=== PATIENT | female | born 2005 | race Caucasian/White ===

== ENCOUNTER → 2023-03-10 13:57 | Outpatient (BNVA) | payer BC, MEDICAID, SELFPAY | PROVIDERS: Visit Provider Nurse Practitioner Family | DX: R10.12 Left upper quadrant pain (principal); X58.XXXA Exposure to other specified factors, initial encounter | CPT/HCPCS: 80053; 82150; 83690; 85025 ==

== ENCOUNTER 2023-04-13 19:19 | Inpatient (IN) | payer BC, MEDICAID, SELFPAY ==
[2023-04-13] VITALS (15 sets, daily range): BP systolic 134–195; BP diastolic 92–167; PULSE 87–142; RESP 16–29; TEMP 36.8–37.1; O2SAT 95–99; BMI 39.6
--- NOTE | 2023-04-13 19:40 | ED_ITS ---
HPI - SOB/Dyspnea General: Chief Complaint: Shortness of Breath/Dyspnea Stated Complaint: has rsv was sent from her doc for ekg Time Seen by Provider: 04/13/23 19:37 History of Present Illness: HPI Narrative: This 18-year-old female presents to the ER with headache, body aches, cough, shortness of breath and chills that started about 7 days ago. There is a ssociated (lightheadedness especially when she stands up) and stuffy nose. She was seen by her primary care provider on Sunday (2 days ago) and was given a prescription for levofloxacin and Tessalon Perles. Patient has not shown any improvement but has rather worsened. She is tachypneic and also tachycardic. Her primary care provider told her she has RSV though an RSV test was not done. Associated symptoms: Reports chest congestion and lightheadedness Review of Systems Const: Denies: chills, body aches or change in appetite Eyes: Denies: change in vision or eye discharge ENMT: Denies: throat pain, dental pain or nasal discharge Card: Reports: lightheadedness and dyspnea on exertion Resp: Reports: dyspnea, wheezing and chest congestion : Denies: dysuria Musc: Reports: other (Body aches, headache) Neuro: Reports: headache(s) and numbness in extremities Psych: Denies: depression Jose/Lymph: Denies: easy bruising All/Imm: Denies: urticaria, tongue swelling or facial swelling Physical Exam Const: COMMON NORMALS: patient oriented x3, no limitations and alert OTHER: Appears to be in distress HENMT: COMMON NORMALS: normocephalic HEAD & SCALP: normocephalic Eye: COMMON NORMALS: EOMs intact bilaterally Neck/C-Spine: COMMON NORMALS: full ROM and supple Chest: COMMONS NORMALS: normal inspection of the chest Resp: OTHER: Tachypnea, mild respiratory distress with use of accessory muscles to breathe. Diffuse bilateral expiratory wheeze, coarse breath sounds bilaterally. Cardio: COMMON NORMALS: regular rhythm and No murmurs present (Cardio) RATE: tachycardic RHYTHM: regular rhythm GI: COMMON NORMALS: Normal to inspection, nondistended, normoactive bowel sounds present and non-tender : COMMON NORMALS: Yes no CVA tenderness BLADDER/KIDNEY EXAM: Yes no CVA tenderness Back/Pelvis: COMMON NORMALS: no CVA tenderness and no thoracic nor lumbar tenderness Extremity: GENERAL: Yes normal exam except as noted Neuro: COMMON NORMALS: patient oriented x3 and no focal motor deficits SENSORIUM/ORIENTATION: Yes alert Psych: COMMON NORMALS: mental status grossly normal and cooperative Course Reevaluation(s): Reevaluation #1: Patient reevaluated. Tachycardia seems slightly better. Respiratory distress has slightly improved but is still there. Patient is tachypneic. She will be admitted for further evaluation and treatment. Patient and mom agree with the plan. Consultations: Consultation #1: Case discussed with Dr. Garcia who accepted patient for admission. Vital Signs: Vital signs: Vital Signs Temperature 98.2 F 04/13/23 19:27 Pulse Rate 129 H 04/13/23 20:36 Respiratory Rate 18 04/13/23 20:36 Blood Pressure 134/107 04/13/23 20:10 Pulse Oximetry 96 04/13/23 20:36 Oxygen Delivery Me thod Room Air 04/13/23 20:36 MDM - SOB/Dyspnea Medical Decision Making Medical decision making: Patient has a history of asthma and presents with a 7-day history of cough, shortness of breath, congestion and lightheadedness. She has diffuse bilateral wheezing with coarse breath sounds. Despite receiving breathing treatments here in addition to what she got at her primary care physician's office and treatments at home, patient continues to wheeze with mild respiratory distress. She will be admitted for further management. Case discussed with Dr. Garcia who accepted patient for admission. Lab Data 04/13/23 19:44 04/13/23 19:44 Labs/Radiology: Radiology Impressions Chest X-Ray 04/13/23 19:57 IMPRESSION: No acute findings. Laboratory Results WBC 14.38 10^3/uL (4.5-13.0) H 04/13/23 19:44 RBC 5.05 10^6/uL (3.85-5.65) 04/13/23 19:44 Hgb 15.60 g/dL (12.4-14.8) H 04/13/23 19:44 Hct 45.1 % (36-47) 04/13/23 19:44 MCV 89.3 fl (85-98) 04/13/23 19:44 MCH 30.9 pg (27-33) 04/13/23 19:44 MCHC 34.6 g/dL (30-55) 04/13/23 19:44 RDW 12.1 % (12.1-15.1) 04/13/23 19:44 Plt Count 412 10^3/cmm (157-399) H 04/13/23 19:44 MPV 10.7 fL (7.4-10.4) H 04/13/23 19:44 Neut % (Auto) 80.2 % 04/13/23 19:44 Lymph % (Auto) 13.4 % 04/13/23 19:44 [place] % (Auto) 4.0 % 04/13/23 19:44 Eos % (Auto) 1.3 % 04/13/23 19:44 Baso % (Auto) 0.5 % 04/13/23 19:44 Neut # (Auto) 11.56 10^3/uL (1.8-8.0) H 04/13/23 19:44 Lymph # (Auto) 1.9 10^3/uL (1.5-6.5) 04/13/23 19:44 [place] # (Auto) 0.6 10^3/uL (0.2-0.9) 04/13/23 19:44 Eos # (Auto) 0.2 10^3/uL (0.0-0.8) 04/13/23 19:44 Baso # (Auto) 0.1 10^3/uL (0.0-0.1) 04/13/23 19:44 Nucleated RBC % (auto) 0 % 04/13/23 19:44 Nucleated RBCs # 0.0 /100WBC 04/13/23 19:44 Sodium 136 mmol/L (136-145) 04/13/23 19:44 Potassium 3.6 mmol/L (3.5-5.1) 04/13/23 19:44 Chloride 99 mmol/L (98-107) 04/13/23 19:44 Carbon Dioxide 22 mmol/L (22-29) 04/13/23 19:44 Anion Gap 18.6 (5-19) 04/13/23 19:44 BUN 9 mg/dL (6-20) 04/13/23 19:44 Creatinine 0.9 mg/dL (0.5-0.9) 04/13/23 19:44 GFR Calculation 79.8 mL/min (90-130) L 04/13/23 19:44 Glucose 159 mg/dL (65-115) H 04/13/23 19:44 Calculated Osmolality 284 mOsm/kg (285-295) L 04/13/23 19:44 Calcium 9.6 mg/dL (8.5-10.5) 04/13/23 19:44 Total Bilirubin 0.7 mg/dL (0.15-1.2) 04/13/23 19:44 AST 15 U/L (0-32) 04/13/23 19:44 ALT 13 U/L (0-33) 04/13/23 19:44 Alkaline Phosphatase 93 U/L (35-105) 04/13/23 19:44 Total Protein 8.7 g/dL (6.6-8.7) 04/13/23 19:44 Albumin 4.6 g/dL (3.5-5.2) 04/13/23 19:44 Globulin 4.1 g/dL (1.3-4.6) 04/13/23 19:44 All radiology interpretation(s) finalized by discharge EKG Data EKG 1: Interpretation: Sinus tachycardia, rate of 144, normal axis, normal intervals, no STEMI. Discharge Plan Discharge Patient Disposition: Admitted As Inpatient Clinical Impression: Asthma with exacerbation Condition: Stable Coding Level of Care Code ED Sericulturist for Festus Callejas
--- NOTE | 2023-04-13 19:57 | XRR_ITS ---
PROCEDURE INFORMATION: Exam: XR Chest Exam date and time: 04/13/2023 8:19 PM Age: 18 years old Clinical indication: Cough and dyspnea; Patient HX: Cough; Wheezing; Chest congestion; Positive rsv TECHNIQUE: Imaging protocol: Radiologic exam of the chest. Views: 1 view. COMPARISON: No relevant prior studies available. FINDINGS: Lungs: Unremarkable. No consolidation. Pleural spaces: Unremarkable. No pleural effusion. No pneumothorax. Heart/Mediastinum: Unremarkable. No cardiomegaly. Bones/joints: Unremarkable. XR/XR chest 1V portable [id number] IMPRESSION: No acute findings.
[2023-04-13 20:03] LABS: Basophils # 0.1 10^3/uL (0.0-0.1); Basophils % 0.5 %; Eosinophils # 0.2 10^3/uL (0.0-0.8); Eosinophils % 1.3 %; Hematocrit 45.1 % (36-47); Lymphocytes # 1.9 10^3/uL (1.5-6.5); Lymphocytes % 13.4 %; Mean Corpuscular HGB Conc 34.6 g/dL (30-55); Mean Corpuscular Hemoglobin 30.9 pg (27-33); Mean Corpuscular Volume 89.3 fl (85-98); Mean Platelet Volume 10.7 fL (7.4-10.4); Monocytes # 0.6 10^3/uL (0.2-0.9); Neutrophils # 11.56 10^3/uL (1.8-8.0); Neutrophils % 80.2 %; Nucleated Red Blood Cells % 0 %; Platelet Count 412 10^3/cmm (157-399); Red Blood Count 5.05 10^6/uL (3.85-5.65); Red Cell Distribution Width 12.1 % (12.1-15.1); White Blood Count 14.38 10^3/uL (4.5-13.0)
[2023-04-13] MEDS: sodium chloride 0.9% 1,000 ML 999 ML IV (20:06)
[2023-04-13] MEDS: methylPREDNISolone sod succ 125 MG in water for injection-sterile 2 ML 24 MG IVP (20:07)
[2023-04-13 20:15] LABS: Alanine Aminotransferase 13 U/L (0-33); Albumin Level 4.6 g/dL (3.5-5.2); Alkaline Phosphatase 93 U/L (35-105); Anion Gap 18.6 (5-19); Aspartate Amino Transferase 15 U/L (0-32); Blood Urea Nitrogen 9 mg/dL (6-20); Calcium 9.6 mg/dL (8.5-10.5); Carbon Dioxide 22 mmol/L (22-29); Chloride 99 mmol/L (98-107); Globulin 4.1 g/dL (1.3-4.6); Glomerular Filtration Rate 79.8 mL/min (90-130); Glucose 159 mg/dL (65-115); Osmolality Calculated 284 mOsm/kg (285-295); Potassium 3.6 mmol/L (3.5-5.1); Sodium 136 mmol/L (136-145); Total Bilirubin 0.7 mg/dL (0.15-1.2); Total Protein 8.7 g/dL (6.6-8.7)
[2023-04-13] MEDS: ipratropium-albuterol 3 mL Neb INHALATION (20:32)
[2023-04-13] MEDS: ketorolac 30 mg/mL INJ IVP (22:18)
--- NOTE | 2023-04-13 22:20 | PM.HP ---
Providers/Chief Complaint Primary Care Provider: Ivana Parra DO Chief Complaint: has rsv was sent from her doc for ekg History of Present Illness Mila Pascual is a 18 year old female with a past medical history of asthma, who presents to [facility] for shortness of breath, wheezing. Patient tells me that for the last 2 weeks she has been having shortness of breath, wheezing, on she tested negative for COVID, she has been on multiple rounds of steroids and antibiotics but continues to have shortness of breath and wheezing. Currently she is alert oriented x3, she is short of breath at the end of sentences she has nasal flaring, mild intercostal suprasternal retractions, she has tachycardia, tachypnea, she is in mild respiratory distress, diffuse wheezing in all lung larsen, she tells me that she she feels better with the albuterol and steroids that she has received. Denies any fevers, chills, nausea, vomiting, abdominal pain. Her last hospitalization for asthma was roughly 4 years ago, and denies ever being intubated for asthma exacerbations. Her last menstrual period was 2 weeks ago, denies being Review of Systems Const: Denies: fever(s) or chills Card: Denies: chest pain Resp: Reports: dyspnea, non-productive cough and wheezing GI: Denies: abdominal pain Medications/Allergies Home Medications Medication Instructions Recorded Confirmed Last Taken Type fluoxetine 20 mg capsule (Prozac) 20 mg PO DAILY 03/10/23 03/10/23 Unknown History lisinopril 5 mg tablet 5 mg PO DAILY 03/10/23 03/10/23 Unknown History omeprazole 20 mg capsule,delayed 20 mg PO DAILY 2 weeks #14 caps 03/10/23 03/10/23 Unknown Rx release quetiapine 50 mg tablet (Seroquel) 50 mg PO BID 03/10/23 03/10/23 Unknown History Allergies Allergy/AdvReac Type Severity Reaction Status Date / Time hydroxyzine Allergy ADR-Halluci Verified 03/10/23 13:42 nating PFSH Acute PFSH: Medical History (Updated 04/13/23 @ 22:24 by Noel Garcia MD) Hypertension Surgical History (Updated 04/13/23 @ 22:22 by Noel Garcia MD) History of cholecystectomy Family History (Updated 04/13/23 @ 22:22 by Noel Garcia MD) Other No pertinent family history Social History (Updated 04/13/23 @ 22:22 by Noel Garcia MD) Smoking and tobacco status: never smoked Alcohol intake: never Substance/Drug Use: never Vitals/I&O/Wt Last Vital Signs Temp 98.2 F 04/13/23 19:27 Pulse 97 04/13/23 22:00 Resp 23 H 04/13/23 22:00 BP 134/107 04/13/23 20:10 Pulse Ox 97 04/13/23 22:00 O2 Del Method Room Air 04/13/23 22:00 04/13/23 04/13/23 04/13/23 06:59 14:59 22:59 Intake Total 1002 / 1002 Balance 1002 / 1002 Weight last 48 hrs Weight 114.759 kg Physical Exam Const: COMMON NORMALS: no acute distress and patient oriented x3 HENMT: COMMON NORMALS: normocephalic HEAD & SCALP: normocephalic Eye: COMMON NORMALS: Equal, round and reactive pupils present Neck/C-Spine: COMMON NORMALS: no JVD Lymph: LYMPHATIC: no lymphadenopathy noted Resp: EFFORT & INSPECTION: Yes tachypneic, Yes respiratory distress, Yes retractions intercostal and supraclavicular, Yes uses accessory muscles and Yes audible wheezes Cardio: COMMON NORMALS: no JVD, regular rhythm, S1 normal heart sound present and S2 normal heart sound present RATE: tachycardic RHYTHM: regular rhythm HEART SOUNDS: S1 normal heart sound present and S2 normal heart sound present GI: COMMON NORMALS: Normal to inspection, nondistended, normoactive bowel sounds present, Soft to palpation and non-tender Extremity: COMMON NORMALS: capillary refill normal, no calf tenderness and no pedal edema Neuro: COMMON NORMALS: patient oriented x3, CN's II-XII intact bilaterally, moves all extremities, no focal motor deficits and no sensory deficits noted Psych: COMMON NORMALS: mental status grossly normal Data 04/13/23 19:44 04/13/23 19:44 A&P Assessment and plan (1) Asthma with exacerbation: (2) Acute hypoxic respiratory failure: Plan Acute hypoxic respiratory failure, secondary to asthma exacerbation ? Has intercostal retractions, suprasternal retractions, tachypnea, tachycardia, mild nasal flaring, mild respiratory distress ? Has received albuterol, steroids, Toradol, fluids in the emergency room ? She is short of breath at the end of sentences Plan ? admit to ICU ? Respiratory viral panel ? We will give 1 dose of magnesium sulfate emergency room due to mild respiratory distress, ? Solu-Medrol 40 IV every 8 hours ? Continue albuterol ? Continue doxycycline ? Continue budesonide ? Monitor respiratory status closely ? Full code ? Lovenox for DVT prophylaxis Attestations Medical Necessity Statement*: Patient requires hospitalization, inpatient, greater than 2 midnights, for acute hypoxic respiratory failure secondary to asthma exacerbation Diagnoses Asthma with exacerbation J45.901 Acute hypoxic respiratory failure J96.01
[2023-04-13] MEDS: magnesium sulfate premix 1 GM/100 ML PIGGYBACK IV (22:23)
[2023-04-13 22:25] LABS: HCG, Serum Qual Negative (Negative)
[2023-04-13] MEDS: albuterol 2.5 mg/3 mL Neb INHALATION ×2 (22:27→23:46)
[2023-04-13] MEDS: doxycycline 100 MG in sodium chloride 0.9% (plus) 100 ML IV (23:51)
[2023-04-13] MEDS: acetaminophen 325 mg Tablet 650 MG PO (23:51)
[2023-04-13] MEDS: sodium chloride 0.9% 1,000 ML 75 ML IV (23:52)
[2023-04-13] MEDS: enoxaparin 40 mg/0.4 mL Syringe SUBCUT (23:52)
[2023-04-13] MEDS: quetiapine 25 mg Tablet 50 MG PO (23:55)
[2023-04-14] VITALS (42 sets, daily range): BP systolic 113–169; BP diastolic 73–132; PULSE 76–129; RESP 11–26; TEMP 36.1–37.1; O2SAT 87–100
[2023-04-14 00:09] LABS: Thyroid Stimulating Hormone 1.41 uIU/mL (0.27-4.20)
[2023-04-14 00:14] LABS: Adenovirus Not Detected (NOT DETECT); Chlamydia Pneumoniae Not Detected (NOT DETECT); Coronavirus 229E,HKU1,NL63,OC4 Not Detected (NOT DETECT); Human Metapneumovirus Not Detected (NOT DETECT); Human Rhinovirus/Enterovirus Not Detected (NOT DETECT); Influenza A Not Detected (NOT DETECT); Influenza A H1 Not Detected (NOT DETECT); Influenza A H1-2009 Not Detected (NOT DETECT); Influenza A H3 Not Detected (NOT DETECT); Influenza B Not Detected (NOT DETECT); Mycoplasma Pneumoniae Not Detected (NOT DETECT); Parainfluenza Virus Type 1 Not Detected (NOT DETECT); Parainfluenza Virus Type 2 Not Detected (NOT DETECT); Parainfluenza Virus Type 3 Not Detected (NOT DETECT); Parainfluenza Virus Type 4 Detected (NOT DETECT); Respiratory Syncytial Virus A Not Detected (NOT DETECT); Respiratory Syncytial Virus B Not Detected (NOT DETECT); SARS-COV-2 Not Detected (NOT DETECT)
[2023-04-14 03:58] LABS: Basophils % 0.3 %; Hematocrit 41.2 % (36-47); Lymphocytes # 1.1 10^3/uL (1.5-6.5); Lymphocytes % 14.3 %; Mean Corpuscular Volume 91.4 fl (85-98); Mean Platelet Volume 10.8 fL (7.4-10.4); Monocytes # 0.1 10^3/uL (0.2-0.9); Monocytes % 1.3 %; Neutrophils # 6.51 10^3/uL (1.8-8.0); Neutrophils % 83.6 %; Nucleated Red Blood Cells % 0 %; Platelet Count 348 10^3/cmm (157-399); Red Blood Count 4.51 10^6/uL (3.85-5.65); Red Cell Distribution Width 12.1 % (12.1-15.1); White Blood Count 7.78 10^3/uL (4.5-13.0)
[2023-04-14 04:26] LABS: Anion Gap 16.3 (5-19); Blood Urea Nitrogen 10 mg/dL (6-20); Calcium 9.3 mg/dL (8.5-10.5); Carbon Dioxide 23 mmol/L (22-29); Chloride 98 mmol/L (98-107); Glomerular Filtration Rate 106.7 mL/min (90-130); Glucose 182 mg/dL (65-115); Magnesium 2.2 mg/dL (1.7-2.3); Osmolality Calculated 282 mOsm/kg (285-295); Phosphorus 3.1 mg/dL (2.5-4.5); Potassium 3.3 mmol/L (3.5-5.1); Sodium 134 mmol/L (136-145)
[2023-04-14] MEDS: albuterol 2.5 mg/3 mL Neb INHALATION ×2 (04:38→08:57)
[2023-04-14] MEDS: methylPREDNISolone sod succ 40 MG in water for injection-sterile 1 ML 12 MG IVP ×3 (05:36→21:21)
[2023-04-14] MEDS: fluoxetine 20 mg Capsule PO (07:25)
[2023-04-14] MEDS: pantoprazole DR 40 mg Tablet PO (07:25)
[2023-04-14] MEDS: quetiapine 25 mg Tablet 50 MG PO ×2 (07:25→16:54)
[2023-04-14 08:48] LABS: ABG PH Result 7.43 (7.35-7.45); Alveolar-Arterial Oxygen Gradi 3.9 mmHg (5-10); Arterial Blood Gas Hematocrit 43.1 % (37-47); Base Excess ABG -1.5 mmol/L (-2.0-2.0); Blood Gas Allen Test Pos; Blood Gas Operator Identificat MONRO; Blood Gas Sample Site Radial, left; Blood Gas Sample Type Arterial; Carboxyhemoglobin 0.7 %THgb (0.4-20.1); HGB O2 Sat 96.2 % (95-100); Ionized Calcium Level - ABG 1.2 mmol/L (1.1-1.4); Methemoglobin 0.2 % (0.4-1.5); Oxygen Device ROOM AIR; PO2 ABG 79.9 mmHg (80.0-100.0); Potassium Level - ABG 3.3 mmol/L (3.5-5.0); Total Hemoglobin 14.1 g/dL (12-16)
[2023-04-14] MEDS: budesonide 0.5 mg/2 mL Neb INHALATION ×2 (08:57→19:16)
--- NOTE | 2023-04-14 09:47 | PM.PN ---
Subjective Subjective: ABG requested Which is showing respiratory compensation I will keep her in ICU for today Continue IV steroids Mild wheezing Patient is endorsing feeling better since admission Tachycardia Change albuterol to Xopenex Vitals/I&O/Wt Last Vital Signs Temp 98.8 F 04/14/23 04:00 Pulse 112 H 04/14/23 09:03 Resp 16 04/14/23 08:58 BP 158/80 04/14/23 08:00 Pulse Ox 94 04/14/23 08:58 O2 Del Method Room Air 04/14/23 08:58 O2 Flow Rate 2 04/14/23 06:00 04/13/23 04/14/23 04/14/23 22:59 06:59 14:59 Intake Total 1102 / 1102 300 / 1402 Balance 1102 / 1102 300 / 1402 Weight last 48 hrs Weight 118.841 kg Weight 117.553 kg Weight 114.759 kg Physical Exam Narrative: Morbidly obese female S1, S2 tachycardia No active chest pain or shortness of breath Mild wheezing on lung auscultation Sitting comfortably in her bed No respiratory compromise Abdomen soft Mother is at the bedside Nonfocal neuro exam Data 04/14/23 03:21 04/14/23 03:21 A&P Assessment and plan (1) Asthma with exacerbation: (2) Acute hypoxic respiratory failure: Plan Acute hypoxia patient is not experiencing respiratory compromise at this point Mild wheezing Continue steroids For sinus tachycardia I will change her albuterol to Xopenex I will like to monitor her 1 more day in the ICU Common cold virus present Patient is not vaccinated for COVID-19 Agree with empirical antibiotic coverage for now Full code Attestations Medical Necessity Statement*: Continue ICU management Diagnoses Asthma with exacerbation J45.901 Acute hypoxic respiratory failure J96.01
[2023-04-14 10:39] LABS: Estmated Average Glucose 100; Hemoglobin A1C 5.1 % (4.0-6.0)
[2023-04-14] MEDS: doxycycline 100 MG in sodium chloride 0.9% (plus) 100 ML IV ×2 (11:09→22:58)
[2023-04-14] MEDS: ipratropium 0.5 mg/2.5 mL Neb INHALATION ×2 (13:42→19:16)
[2023-04-14] MEDS: levalbuterol 1.25 mg/3 mL Neb INHALATION ×2 (13:42→19:16)
--- NOTE | 2023-04-14 19:23 | ECG_ITS ---
[facility] Test Date: 2023-04-14 Pat Name: Mila Pascual Department: Room: 271 Gender: Female Hearing Healthcare Practitioner: : 2005 Requested By: Noel Garcia Order Number: [id number] Gene MD: Cesar Malone M.D. Measurements Intervals [place] Rate: 136 P: 63 OK: 150 QRS: 31 QRSD: 98 T: 39 QT: 330 QTc: 497 Interpretive Statements SINUS TACHYCARDIA NONSPECIFIC ST & T-WAVE ABNORMALITY No previous ECG available for comparison Electronically Signed On 04-15-2023 22:53:47 CDT by Cesar Malone M.D. [id number]
[2023-04-14] MEDS: magnesium sulfate premix 2 GM/50 ML PIGGYBACK IV (20:16)
[2023-04-14] MEDS: sodium chloride 0.9% 1,000 ML 75 ML IV (20:17)
[2023-04-14 20:19] LABS: ABG PH Result 7.42 (7.35-7.45); Alveolar-Arterial Oxygen Gradi 1.8 mmHg (5-10); Arterial Blood Gas Hematocrit 41.2 % (37-47); Base Excess ABG -2.8 mmol/L (-2.0-2.0); Blood Gas Allen Test Pos; Blood Gas Sample Site Radial, right; Blood Gas Sample Type Arterial; Carboxyhemoglobin 0.7 %THgb (0.4-20.1); HCO3 ABG 20.8 mmol/L (22-26); HGB O2 Sat 97.3 % (95-100); Ionized Calcium Level - ABG 1.2 mmol/L (1.1-1.4); Methemoglobin 0.3 % (0.4-1.5); Oxygen Device NC; Oxygen Saturation ABG 98.3; PO2 ABG 95.8 mmHg (80.0-100.0); Total Hemoglobin 13.4 g/dL (12-16)
[2023-04-14] MEDS: benzonatate 100 mg Capsule 200 MG PO (20:26)
[2023-04-14] MEDS: acetaminophen 325 mg Tablet 650 MG PO (21:54)
--- NOTE | 2023-04-14 21:56 | PM.CCNAC ---
Critical Care Event Note The high probability of a clinically significant, sudden or life threatening deterioration of the patient's [] system(s) required my full and direct attention, intervention and personal management. The critical care time is as shown. This time is in addition to time spent performing any reported procedures but includes the following: [x] Data and vital sign review and interpretation [x] Patient assessment, examination and intervention [x] Documentation [x] Medication orders and management Critical Care Time Code activated: No Critical Care Time (min): 35 Additional information about critical care time: This evening, patient had increased work of breathing, tachycardic heart rates in the 130s, nurses report patient feeling flushed, short of breath, -Upon evaluating patient, heart rates are in the 110s, normal sinus rhythm, she has diffuse wheezing in all lung larsen no suprasternal retractions intercostal retractions, nasal flaring, she is short of breath at the end of a few words, she is in mild to moderate respiratory distress -However she was ambulating to the bathroom upon my entering the room, by herself, she washed her hands and was able to get back into bed -She has been given Xopenex, steroids, -I discussed with her moving her down to the ICU for close monitoring -We will give her 2 g of mag sulfate -We will monitor her respiratory status closely -She is placed on 3 L nasal cannula -I have asked respiratory therapy to repeat ABG -We will watch her clinical status closely, will consider DuoNeb if she continues to have wheezing -Patient's mother is at bedside, patient and mom voiced understanding, all questions answered Coding Level of Care Code Acute Code for Chg Fwniki
--- NOTE | 2023-04-14 21:59 | PC.NURSE ---
Received from Med surg via wheelchair with nurse and mother at bedside. Reports having some shortness of breath but states I am feeling much better now . Placed on security monitor. Placed on O2 at 3L NC with humidification added. Tylenol given for mild chest soreness. Strong non-productive cough noted. No acute distress noted.
--- NOTE | 2023-04-14 22:04 | PC.NURSE ---
at shift change patient was noted to be saturating at 84% on RA, inspiratory and expiratory wheezing throughout, tachypneic, and tachycardic with HR sustaining in the 140's to 150's. supplemental oxygen was placed on the patient at 3L nc and Dr was called and informed, EKG, 2gm magnesium, ABG, and tessalon pearls ordered for the patient as well as breathing tx by RT. patient stated I'm starting to feel better at end of magnesium infusion. Report called to ICU and this selling underwriter transferred patient by wheelchair with the patients mother accompanying.
[2023-04-14] MEDS: enoxaparin 40 mg/0.4 mL Syringe SUBCUT (22:59)
[2023-04-14] MEDS: ipratropium-albuterol 3 mL Neb INHALATION (23:45)
[2023-04-15] VITALS (29 sets, daily range): BP systolic 112–152; BP diastolic 59–116; PULSE 64–117; RESP 10–22; TEMP 36.6–37.1; O2SAT 94–100
[2023-04-15] MEDS: methylPREDNISolone sod succ 40 MG in water for injection-sterile 1 ML 12 MG IVP ×2 (02:39→09:05)
[2023-04-15] MEDS: ipratropium-albuterol 3 mL Neb INHALATION ×6 (03:20→23:19)
[2023-04-15 05:27] LABS: Basophils % 0.2 %; Hematocrit 42.7 % (36-47); Lymphocytes # 2.3 10^3/uL (1.5-6.5); Lymphocytes % 12.7 %; Mean Corpuscular HGB Conc 32.6 g/dL (30-55); Mean Corpuscular Hemoglobin 31.2 pg (27-33); Monocytes # 0.3 10^3/uL (0.2-0.9); Monocytes % 1.6 %; Neutrophils # 15.11 10^3/uL (1.8-8.0); Neutrophils % 84.3 %; Nucleated Red Blood Cells % 0 %; Platelet Count 355 10^3/cmm (157-399); Red Blood Count 4.45 10^6/uL (3.85-5.65); Red Cell Distribution Width 12.6 % (12.1-15.1); White Blood Count 17.94 10^3/uL (4.5-13.0)
[2023-04-15 05:52] LABS: Blood Urea Nitrogen 10 mg/dL (6-20); Calcium 8.9 mg/dL (8.5-10.5); Carbon Dioxide 21 mmol/L (22-29); Chloride 105 mmol/L (98-107); Glomerular Filtration Rate 157.3 mL/min (90-130); Glucose 150 mg/dL (65-115); Osmolality Calculated 290 mOsm/kg (285-295); Sodium 139 mmol/L (136-145)
[2023-04-15 05:55] LABS: Anion Gap 17.1 (5-19); Potassium 4.1 mmol/L (3.5-5.1)
[2023-04-15] MEDS: budesonide 0.5 mg/2 mL Neb INHALATION ×2 (07:47→19:14)
[2023-04-15] MEDS: quetiapine 25 mg Tablet 50 MG PO ×2 (08:46→20:02)
[2023-04-15] MEDS: pantoprazole DR 40 mg Tablet PO (08:46)
[2023-04-15] MEDS: fluoxetine 20 mg Capsule PO (08:46)
[2023-04-15] MEDS: benzonatate 100 mg Capsule 200 MG PO ×2 (08:46→20:01)
[2023-04-15 09:06] LABS: Glucose Point of Care 145 mg/dL (70-110)
--- NOTE | 2023-04-15 11:24 | PM.PN ---
Subjective Subjective: Patient is walking in the hallway No active wheezing Face was red Submandibular gland swelling No hyperemia posterior pharynx Requested rapid strep Increase the dose of IV steroids Vitals/I&O/Wt Last Vital Signs Temp 97.9 F 04/15/23 08:00 Pulse 94 04/15/23 08:00 Resp 16 04/15/23 08:00 BP 132/78 04/15/23 08:00 Pulse Ox 97 04/15/23 08:00 O2 Del Method Nasal Cannula 04/15/23 08:00 O2 Flow Rate 1 04/15/23 08:00 04/14/23 04/15/23 04/15/23 22:59 06:59 14:59 Intake Total 1991 251 / 2843 803.75 / 803.75 Balance 1991 251 / 2843 803.75 / 803.75 Weight last 48 hrs Weight 120.202 kg Weight 118.841 kg Weight 117.553 kg Weight 114.759 kg Physical Exam Narrative: Cushingoid appearance No active wheezing or crackles No respiratory distress Currently on room air and saturating well Facial congestion Submental gland swelling noted Posterior pharynx without significant hyperemia Abdomen soft Morbidly obese S1, S2 Data 04/15/23 04:19 04/15/23 04:19 A&P Assessment and plan (1) Acute hypoxic respiratory failure: (2) Asthma with exacerbation: Plan Moderate asthma exacerbation Monitor for symptoms after trial of IV mag Increase the dose of IV steroids Continue antibiotics Continue DuoNeb treatment monitor heart rate Change quetiapine to bedtime 50 mg daily Monitor for hyperglycemia Patient not ready to be discharged Rule out rapid strep Start regular diet DVT prophylaxis on board Attestations Medical Necessity Statement*: Continue ICU management Diagnoses Acute hypoxic respiratory failure J96.01 Asthma with exacerbation J45.901
[2023-04-15] MEDS: montelukast sodium 10 mg Tablet PO ×2 (12:22→17:40)
[2023-04-15] MEDS: cefTRIAXone 1,000 MG in sodium chloride 0.9% (plus) 50 ML 100 MG IV (12:22)
[2023-04-15] MEDS: fluticasone nasal spray 16gm Btl 1 SPRAY NASAL ×2 (12:22→17:39)
[2023-04-15] MEDS: phenol oral Spray 177 mL 3 SPRAY MUCOUS MEM (12:44)
[2023-04-15 13:15] LABS: Rapid Strep A Test Negative (Negative)
[2023-04-15] MEDS: acetaminophen 325 mg Tablet 650 MG PO (20:01)
[2023-04-16] VITALS (8 sets, daily range): BP systolic 110–140; BP diastolic 62–97; PULSE 71–108; RESP 13–21; TEMP 36.9–37; O2SAT 96–99
[2023-04-16] MEDS: ipratropium-albuterol 3 mL Neb INHALATION ×2 (03:13→07:47)
[2023-04-16 04:17] LABS: Basophils % 0.2 %; Hematocrit 37.6 % (36-47); Lymphocytes # 1.9 10^3/uL (1.5-6.5); Lymphocytes % 10.7 %; Mean Corpuscular HGB Conc 33.2 g/dL (30-55); Mean Corpuscular Hemoglobin 31.9 pg (27-33); Mean Corpuscular Volume 95.9 fl (85-98); Mean Platelet Volume 10.9 fL (7.4-10.4); Monocytes # 0.5 10^3/uL (0.2-0.9); Monocytes % 2.6 %; Neutrophils # 14.71 10^3/uL (1.8-8.0); Neutrophils % 84.9 %; Nucleated Red Blood Cells % 0 %; Platelet Count 350 10^3/cmm (157-399); Red Blood Count 3.92 10^6/uL (3.85-5.65); Red Cell Distribution Width 12.7 % (12.1-15.1); White Blood Count 17.32 10^3/uL (4.5-13.0)
[2023-04-16 04:27] LABS: Anion Gap 13.8 (5-19); Blood Urea Nitrogen 10 mg/dL (6-20); Calcium 8.9 mg/dL (8.5-10.5); Carbon Dioxide 23 mmol/L (22-29); Chloride 102 mmol/L (98-107); Glomerular Filtration Rate 203.5 mL/min (90-130); Glucose 190 mg/dL (65-115); Osmolality Calculated 284 mOsm/kg (285-295); Potassium 3.8 mmol/L (3.5-5.1); Sodium 135 mmol/L (136-145)
[2023-04-16 04:40] LABS: Phosphorus 2.9 mg/dL (2.5-4.5)
[2023-04-16] MEDS: budesonide 0.5 mg/2 mL Neb INHALATION (07:47)
[2023-04-16] MEDS: fluticasone nasal spray 16gm Btl 1 SPRAY NASAL (09:37)
[2023-04-16] MEDS: fluoxetine 20 mg Capsule PO (09:38)
[2023-04-16] MEDS: pantoprazole DR 40 mg Tablet PO (09:38)
--- NOTE | 2023-04-16 09:48 | PM.DCS ---
Discharge Providers Date of Admission: 04/13/23 22:05 Date of Discharge: April 16, 2023 Attending Provider at Admission: Noel Garcia MD Attending Provider at Discharge: Fidel Boland MD Primary Care Provider: Ivana Parra DO Diagnoses at Discharge Discharge Diagnosis (1) Acute hypoxic respiratory failure: Status: Acute (2) Asthma with exacerbation: Status: Acute Reason for Visit Reason for Visit: has rsv was sent from her doc for ekg Hospital Course Hospital Course 18-year-old female who was admitted for management evaluation of exacerbation of asthma, she required high-dose steroids, she did not experience significant wheezing, ABG showed respiratory alkalosis, she did not show respiratory compromise, she was monitored in the ICU, remained tachycardic from use of albuterol, viral panel positive parainfluenza virus, COVID negative, strep throat negative, patient did respond to montelukast magnesium with steroids. She was discharged home with Medrol pack, azithromycin 5-day regimen I did discuss monoclonal antibodies with the patient if she keeps getting recurrent episode of asthma exacerbation, monoclonal antibodies or game changer for asthma exacerbations, patient will like to follow-up with senior java programmer analyst On CBC I do not see significant eosinophils, most likely asthma exacerbation was related to parainfluenza viral infection Patient is not vaccinated for COVID-19 I did career and guidance counselor her to get COVID-19 vaccination She will qualify for intermittent asthma we will add inhaled low-dose steroids with her Fang She has been taking lisinopril for a long time that might need to be changed if she starts complaining of dry cough Physical Exam Narrative: Morbidly obese No active wheezing or crackles GCS 15 No active discomfort Doing well on room air Abdomen soft No respiratory compromise Pleasant and cooperative Discharge Data Studies Completed and Pending Completed Studies During Hospitalization Category Date Time Status XR chest 1V portable [id number] Stat Exams 04/13/23 19:57 Completed Pending at discharge Category Date Time Status Streptococcus Culture Group A Stat Lab 04/15/23 12:43 Received Venous Blood Gas AM LABS Lab 04/16/23 04:00 Ordered Radiology Impressions Chest X-Ray 04/13/23 19:57 IMPRESSION: No acute findings. Laboratory Results WBC 17.32 10^3/uL (4.5-13.0) H 04/16/23 03:14 RBC 3.92 10^6/uL (3.85-5.65) 04/16/23 03:14 Hgb 12.50 g/dL (12.4-14.8) 04/16/23 03:14 Hct 37.6 % (36-47) 04/16/23 03:14 MCV 95.9 fl (85-98) 04/16/23 03:14 MCH 31.9 pg (27-33) 04/16/23 03:14 MCHC 33.2 g/dL (30-55) 04/16/23 03:14 RDW 12.7 % (12.1-15.1) 04/16/23 03:14 Plt Count 350 10^3/cmm (157-399) 04/16/23 03:14 MPV 10.9 fL (7.4-10.4) H 04/16/23 03:14 Neut % (Auto) 84.9 % 04/16/23 03:14 Lymph % (Auto) 10.7 % 04/16/23 03:14 Early % (Auto) 2.6 % 04/16/23 03:14 Eos % (Auto) 0.0 % 04/16/23 03:14 Baso % (Auto) 0.2 % 04/16/23 03:14 Neut # (Auto) 14.71 10^3/uL (1.8-8.0) H 04/16/23 03:14 Lymph # (Auto) 1.9 10^3/uL (1.5-6.5) 04/16/23 03:14 Early # (Auto) 0.5 10^3/uL (0.2-0.9) 04/16/23 03:14 Eos # (Auto) 0.0 10^3/uL (0.0-0.8) 04/16/23 03:14 Baso # (Auto) 0.0 10^3/uL (0.0-0.1) 04/16/23 03:14 Nucleated RBC % (auto) 0 % 04/16/23 03:14 Nucleated RBCs # 0.0 /100WBC 04/16/23 03:14 Specimen Type Arterial 04/14/23 20:07 Sample Site Radial, right 04/14/23 20:07 ABG pH 7.42 (7.35-7.45) 04/14/23 20:07 ABG pCO2 32.0 mmHg (35-45) L 04/14/23 20:07 ABG pO2 95.8 mmHg (80.0-100.0) 04/14/23 20:07 ABG HCO3 20.8 mmol/L (22-26) L 04/14/23 20:07 ABG O2 Saturation 98.3 04/14/23 20:07 ABG Base Excess -2.8 mmol/L (-2.0-2.0) L 04/14/23 20:07 Augustin Test Pos 04/14/23 20:07 A-a O2 Gradient 1.8 mmHg (5-10) L 04/14/23 20:07 Hematocrit 41.2 % (37-47) 04/14/23 20:07 Hgb O2 Saturation 97.3 % (95-100) 04/14/23 20:07 Carboxyhemoglobin 0.7 %THgb (0.4-20.1) 04/14/23 20:07 Methemoglobin 0.3 % (0.4-1.5) L 04/14/23 20:07 Total Hemoglobin 13.4 g/dL (12-16) 04/14/23 20:07 Sodium 143.0 mmol/L (131-143) 04/14/23 20:07 Potassium 3.0 mmol/L (3.5-5.0) L 04/14/23 20:07 Glucose 177.0 mg/dL (70-115) H 04/14/23 20:07 Ionized Calcium 1.2 mmol/L (1.1-1.4) 04/14/23 20:07 O2 Delivery Device Nc 04/14/23 20:07 O2 Liters/Min 3.0 % 04/14/23 20:07 FiO2 21.0 % 04/14/23 08:35 Supervisor Carding ID [email or web address] 04/14/23 20:07 Sodium 135 mmol/L (136-145) L 04/16/23 03:14 Potassium 3.8 mmol/L (3.5-5.1) 04/16/23 03:14 Chloride 102 mmol/L (98-107) 04/16/23 03:14 Carbon Dioxide 23 mmol/L (22-29) 04/16/23 03:14 Anion Gap 13.8 (5-19) 04/16/23 03:14 BUN 10 mg/dL (6-20) 04/16/23 03:14 Creatinine 0.4 mg/dL (0.5-0.9) L 04/16/23 03:14 GFR Calculation 203.5 mL/min (90-130) H 04/16/23 03:14 Glucose 190 mg/dL (65-115) H 04/16/23 03:14 POC Glucose 145 mg/dL (70-110) H 04/15/23 09:00 Estimat Average Glucose 100 04/14/23 03:21 Hemoglobin A1c 5.1 % (4.0-6.0) 04/14/23 03:21 Calculated Osmolality 284 mOsm/kg (285-295) L 04/16/23 03:14 Calcium 8.9 mg/dL (8.5-10.5) 04/16/23 03:14 Phosphorus 2.9 mg/dL (2.5-4.5) 04/16/23 03:14 Magnesium 2.0 mg/dL (1.7-2.3) 04/16/23 03:14 Total Bilirubin 0.7 mg/dL (0.15-1.2) 04/13/23 19:44 AST 15 U/L (0-32) 04/13/23 19:44 ALT 13 U/L (0-33) 04/13/23 19:44 Alkaline Phosphatase 93 U/L (35-105) 04/13/23 19:44 C-Reactive Protein 3.0 mg/L (0.0-4.9) 04/16/23 03:14 Total Protein 8.7 g/dL (6.6-8.7) 04/13/23 19:44 Albumin 4.6 g/dL (3.5-5.2) 04/13/23 19:44 Globulin 4.1 g/dL (1.3-4.6) 04/13/23 19:44 TSH 1.41 uIU/mL (0.27-4.20) 04/13/23 19:44 HCG, Qual Negative (Negative) 04/13/23 19:44 Nasal Influ A H1 2008 PCR Not detected (NOT DETECT) 04/13/23 22:04 Adenovirus (PCR) Not detected (NOT DETECT) 04/13/23 22:04 C. pneumoniae DNA (PCR) Not detected (NOT DETECT) 04/13/23 22:04 Coronavirus 229E (PCR) Not detected (NOT DETECT) 04/13/23 22:04 Human Metapneumovir PCR Not detected (NOT DETECT) 04/13/23 22:04 Influenza A (H1) PCR Not detected (NOT DETECT) 04/13/23 22:04 Influenza A (H3) PCR Not detected (NOT DETECT) 04/13/23 22:04 Influenza Type A (PCR) Not detected (NOT DETECT) 04/13/23 22:04 Influenza Type B (PCR) Not detected (NOT DETECT) 04/13/23 22:04 M. pneumoniae (PCR) Not detected (NOT DETECT) 04/13/23 22:04 Parainfluenza 1 (PCR) Not detected (NOT DETECT) 04/13/23 22:04 Parainfluenza 2 (PCR) Not detected (NOT DETECT) 04/13/23 22:04 Parainfluenza 3 (PCR) Not detected (NOT DETECT) 04/13/23 22:04 Parainfluenza 4 (PCR) Detected (NOT DETECT) A 04/13/23 22:04 RSV Type A (PCR) Not detected (NOT DETECT) 04/13/23 22:04 RSV Type B (PCR) Not detected (NOT DETECT) 04/13/23 22:04 Entero/Rhino (PCR) Not detected (NOT DETECT) 04/13/23 22:04 SARS-CoV-2 (PCR) Not detected (NOT DETECT) 04/13/23 22:04 Group A Strep Rapid Negative (Negative) 04/15/23 12:43 Vitals Last Vital Signs Temp 98.6 F 04/16/23 04:00 Pulse 108 H 04/16/23 08:00 Resp 21 H 04/16/23 08:00 BP 116/72 04/16/23 08:00 Pulse Ox 99 04/16/23 08:00 O2 Del Method Room Air 04/16/23 07:50 O2 Flow Rate 0.5 04/15/23 12:39 Discharge Plan Discharge Patient Disposition: Home Condition: Stable Prescriptions: New azithromycin 250 mg tablet 250 mg PO DAILY 4 Days Qty: 4 0RF methylprednisolone [Medrol (Jhonny)] 4 mg tablets,dose pack See Rx Instructions .ROUTE .COMPLEX Qty: 21 0RF Rx Instructions: orally per package directions albuterol sulfate 90 mcg/actuation HFA aerosol inhaler 2 inh inhalation Q8H PRN (Reason: shortness of breath or wheezing) Qty: 6.7 4RF budesonide 90 mcg/actuation aerosol powdr breath activated 1 inh inhalation BID Qty: 1 4RF Continued quetiapine [Seroquel] 50 mg tablet 50 mg PO BID fluoxetine [Prozac] 20 mg capsule 20 mg PO DAILY lisinopril 5 mg tablet 5 mg PO DAILY omeprazole 20 mg capsule,delayed release(DR/EC) 20 mg PO DAILY 14 Days Qty: 14 0RF Discharge Orders: Discharge Order (Routine); Ordered 04/16/23 Ordered By: Fidel Boland Referrals: Ivana Parra DO [Primary Care Provider] - Datar,Robert Ruvalcaba MD [Physician] - 1 week Patient Instructions: Opioid Safety Discharge Attestations Time Spent in Discharge Care*: greater than 30 min Quality Metrics Clinical Quality Measures [ No reported AMI, CVA or VTE this stay] Coding Level of Care Code Acute Code for Chg Fwd Diagnoses Acute hypoxic respiratory failure J96.01 Asthma with exacerbation J45.901
--- NOTE | 2023-04-16 10:30 | PC.NURSE ---
Discharge Note Patient discharged home accompanied by mother. Discharge instructions reviewed with patient and mother, both verbalized understanding of teaching. Prescriptions sent to patient preferred pharmacy. All belongings sent home with patient upon discharge. Upon discharge patient is alert/oriented x4, on room air & no wounds or skin issues noted at this time.
== END 2023-04-16 10:36 | disposition home or self-care (01) | DRG 202 ==
LOC: ER 22:05 → ICU 22:30 → MEDSURG 04-14 16:40 → ICU 04-14 21:49
PROVIDERS: Admitting Provider Family Medicine; Emergency Provider Family Medicine; PCP Family Medicine; Visit Provider Internal Medicine
DX: J45.41 Moderate persistent asthma with (acute) exacerbation (principal); J96.01 Acute respiratory failure with hypoxia; E87.3 Alkalosis; Z68.41 Body mass index [BMI] 40.0-44.9, adult; B34.8 Other viral infections of unspecified site; Z20.822 Contact with and (suspected) exposure to COVID-19; R00.0 Tachycardia, unspecified; T48.6X5A Adverse effect of antiasthmatics, initial encounter; I10 Essential (primary) hypertension; E66.01 Morbid (severe) obesity due to excess calories
CPT/HCPCS: 36415; 36416; 36600; 71045; 80048; 80051; 80053; 82330; 82805; 82962; 83036; 83735; 84100; 84443; 84703; 85025; 86140; 87081; 87486; 87581; 87633; 87880; 93005; 94640; 94664; 96372; 96374; 96375; 96376; 99285; J0696; J1650; J1885; J2920; J2930; J3475; J3490; J7030; J7613; J7614; J7626; J7644

== ENCOUNTER 2023-10-16 23:58 | Emergency (ER) | payer SELFPAY ==
[2023-10-17] VITALS: BP 164/101; PULSE 87; RESP 16; TEMP 36.5; O2SAT 100
--- NOTE | 2023-10-17 00:05 | W.ED.ABDPA2 ---
HPI - Abdominal Pain General: Chief Complaint: Abdominal Pain Stated Complaint: abdomen pain Time Seen by Provider: 10/17/23 00:03 History of Present Illness: 18-year-old female presents to the emergency department with complaints of generalized upper abdominal pain. She states she was seen by her primary care provider earlier today and provided Carafate. She states that the provider also checked a hydrogen breath test for a stomach bacteria and said that she may have an ulcer. She does not endorse marijuana usage. Patient states her current pain is an 8-1/2 out of 10 intermittent cramping. She states that the only thing that seems to make it better or hot baths. She states that anything that she eats or drink makes it worse. Associated Symptoms: Reports nausea and vomiting Review of Systems General: Reports: 10 or more systems reviewed and unremarkable except in HPI and below GI: Reports: abdominal pain, nausea and vomiting [facility] ED PFSH: Medical History Acute hypoxic respiratory failure Anxiety Asthma with exacerbation Depression Hypertension Surgical History History of cholecystectomy Family History Other No pertinent family history Social History Smoking and tobacco/nicotine status: never used tobacco/nicotine Alcohol intake: never Substance/Drug Use: never Physical Exam Narrative: EXAM NARRATIVE: Constitutional: the patient appears well nourished and of normal development. Vital signs as documented. No acute distress at present. Alert and oriented-to person, place, time and situation. Head, eyes, ears, nose, mouth, throat: Normocephalic, atraumatic. Pupils-equal, round, reactive to light. No scleral icterus. Normal-appearing external ears. Normal appearing nasal turbinates, no drainage. No obvious oral lesions, posterior oropharynx without erythema or exudates. Neck: Supple, trachea is midline, no lymphadenopathy, no jugular venous distension, thyromegaly, or carotid bruits. Carotid upstrokes are brisk bilaterally. Lungs: clear to auscultation to all lung [place]. Symmetrical rise and fall of chest, no obvious signs of increased work of breathing at present. Cardiac: Regular rate and rhythm, positive S1, S2. No murmurs, rubs or gallops that I can appreciate Abdomen: Soft, non-tender to palpation, normal active bowel sounds to all quadrants. No palpable masses, no organomegaly and abdominal bruits. Extremities: 2+ pulses in the upper extremities that are equal bilaterally, 2+ pulses in the lower extremities that are equal bilaterally. Non-edematous. Moves all extremities well, sensation to all extremities are noted. Skin: Warm, dry, intact. Course Vital Signs: Vital signs: Vital Signs Temperature 97.7 F 10/17/23 00:00 Pulse Rate 100 10/17/23 03:13 Respiratory Rate 16 10/17/23 00:00 Blood Pressure 167/107 10/17/23 03:13 Pulse Oximetry 99 10/17/23 03:13 Oxygen Delivery Me thod Room Air 10/17/23 03:04 MDM - Abdominal Pain Medical Decision Making Physical exam completed and documented, I will obtain laboratory evaluation to include a CBC, CMP, lipase, urinalysis, abdominal plain film to evaluate. Differential diagnosis includes bowel obstruction, abdominal wall strain, cannabinoid induced hyperemesis syndrome, gastroenteritis, constipation, colitis, acute appendicitis, diverticulitis, diverticulosis, pancreatitis I did provide the patient a GI cocktail and she states that she did feel that it helped her esophagus from her previous episodes of nausea vomiting but did not cause much resolution for her sore abdominal muscles from vomiting. I also provided the patient Zofran while here in the emergency department and she has not had any additional episodes of nausea or vomiting. Medical Records I reviewed the patient's medical records. Lab Data I reviewed the patient's lab results. 10/17/23 00:32 10/17/23 00:32 Labs/Radiology: Radiology Impressions Abdomen X-Ray 10/17/23 00:45 IMPRESSION: No acute abnormality demonstrated. Laboratory Results WBC 10.42 10^3/uL (4.5-13.0) 10/17/23 00:32 RBC 4.50 10^6/uL (3.85-5.65) 10/17/23 00:32 Hgb 14.10 g/dL (12.4-14.8) 10/17/23 00:32 Hct 41.3 % (36-47) 10/17/23 00:32 MCV 91.8 fl (85-98) 10/17/23 00:32 MCH 31.3 pg (27-33) 10/17/23 00:32 MCHC 34.1 g/dL (30-55) 10/17/23 00:32 RDW 12.6 % (12.1-15.1) 10/17/23 00:32 Plt Count 315 10^3/cmm (157-399) 10/17/23 00:32 MPV 11.0 fL (7.4-10.4) H 10/17/23 00:32 Neut % (Auto) 41.8 % 10/17/23 00:32 Lymph % (Auto) 45.9 % 10/17/23 00:32 [place] % (Auto) 8.0 % 10/17/23 00:32 Eos % (Auto) 3.4 % 10/17/23 00:32 Baso % (Auto) 0.6 % 10/17/23 00:32 Neut # (Auto) 4.37 10^3/uL (1.8-8.0) 10/17/23 00:32 Lymph # (Auto) 4.8 10^3/uL (1.5-6.5) 10/17/23 00:32 [place] # (Auto) 0.8 10^3/uL (0.2-0.9) 10/17/23 00:32 Eos # (Auto) 0.4 10^3/uL (0.0-0.8) 10/17/23 00:32 Baso # (Auto) 0.1 10^3/uL (0.0-0.1) 10/17/23 00:32 Nucleated RBC % (auto) 0 % 10/17/23 00:32 Nucleated RBCs # 0.0 /100WBC 10/17/23 00:32 Sodium 139 mmol/L (136-145) 10/17/23 00:32 Potassium 3.7 mmol/L (3.5-5.1) 10/17/23 00:32 Chloride 105 mmol/L (98-107) 10/17/23 00:32 Carbon Dioxide 21 mmol/L (22-29) L 10/17/23 00:32 Anion Gap 16.7 (5-19) 10/17/23 00:32 BUN 7 mg/dL (6-20) 10/17/23 00:32 Creatinine 0.5 mg/dL (0.5-0.9) 10/17/23 00:32 GFR Calculation 157.3 mL/min (90-130) H 10/17/23 00:32 Glucose 92 mg/dL (65-115) 10/17/23 00:32 Calculated Osmolality 286 mOsm/kg (285-295) 10/17/23 00:32 Calcium 9.2 mg/dL (8.5-10.5) 10/17/23 00:32 Total Bilirubin 0.4 mg/dL (0.15-1.2) 10/17/23 00:32 AST 16 U/L (0-32) 10/17/23:32 ALT 13 U/L (0-33) 10/17/23:32 Alkaline Phosphatase 82 U/L (35-105) 10/17/23 00:32 Total Protein 7.9 g/dL (6.6-8.7) 10/17/23 00:32 Albumin 4.5 g/dL (3.5-5.2) 10/17/23 00:32 Globulin 3.4 g/dL (1.3-4.6) 10/17/23 00:32 Lipase 23 U/L (13-60) 10/17/23 00:32 HCG, Qual Negative (Negative) 10/17/23 00:42 Urine Color Yellow (Yellow) 10/17/23 00:32 Urine Appearance Hazy (CLEAR) A 10/17/23 00:32 Urine pH 5 (5-7) 10/17/23 00:32 Ur Specific [place] 1.025 (1.005-1.030) 10/17/23 00:32 Urine Protein Trace (Negative) 10/17/23 00:32 Urine Glucose (UA) Norm (Normal) 10/17/23 00:32 Urine Ketones 1+ (Negative) H 10/17/23 00:32 Urine Blood Neg (Negative) 10/17/23 00: Urine Nitrate Negative (Negative) 10/17/23 00:32 Urine Bilirubin Neg (Negative) 10/17/23 00:32 Urine Urobilinogen Neg mg/dL (Negative) 10/17/23 00:32 Ur Leukocyte Esterase Negative (Negative) 10/17/23 00: Urine RBC 0-4 /hpf (0-2) H 10/17/23 00:32 Urine WBC 0-4 /hpf (0-5) H 10/17/23 00:32 Ur Squamous Epith Cells 10-15 /hpf (0-5) H 10/17/23 00:32 Amorphous Sediment Not Reportable 10/17/23 00:32 Urine Bacteria 3+ /hpf (NONE) H 10/17/23 00:32 Urine Mucus 3+ /hpf 10/17/23 00:32 Urine Opiates Screen Negative ng/mL (Negative) 10/17/23 00:32 Ur Barbiturates Screen Negative ng/mL (Negative) 10/17/23 00:32 Ur Phencyclidine Scrn Negative ng/mL (Negative) 10/17/23 00:32 Ur Amphetamines Screen Negative ng/mL (Negative) 10/17/23 00:32 U Benzodiazepines Scrn Positive ng/mL (Negative) H 10/17/23 00:32 Urine Cocaine Screen Negative ng/mL (Negative) 10/17/23 00:32 U Marijuana (THC) Screen Positive ng/mL (Negative) H 10/17/23 00:32 All radiology interpretation(s) finalized by discharge Discharge Plan Discharge Patient Disposition: Home Clinical Impression: Cannabinoid hyperemesis syndrome Abdominal pain Qualifiers: Abdominal location: generalized Qualified Code(s): R10.84 - Generalized abdominal pain Condition: Stable Prescriptions: New ondansetron HCl 4 mg tablet 4 mg PO Q6H PRN (Reason: nausea and vomiting) Qty: 14 0RF No Action quetiapine [Seroquel] 50 mg tablet 50 mg PO BID fluoxetine [Prozac] 20 mg capsule 20 mg PO DAILY lisinopril 5 mg tablet 5 mg PO DAILY omeprazole 20 mg capsule,delayed release(DR/EC) 20 mg PO DAILY 14 Days Qty: 14 0RF Medrol (Jhonny) 4 mg tablets,dose pack See Rx Instructions .ROUTE .COMPLEX Qty: 21 0RF Rx Instructions: orally per package directions albuterol sulfate 90 mcg/actuation HFA aerosol inhaler 2 inh inhalation Q8H PRN (Reason: shortness of breath or wheezing) Qty: 6.7 4RF budesonide 90 mcg/actuation aerosol powdr breath activated 1 inh inhalation BID Qty: 1 4RF Discharge Orders: Discharge ED (Routine); Ordered 10/17/23 Ordered By: Alex Do Referrals: Ivana Parra DO [Primary Care Provider] - Discharge Diet: Usual diet Discharge Activity: Resume usual activity Patient Instructions: Abdominal Pain (ED), Opioid Safety, Pain Management Activity Restrictions/Additional Instructions: Activity Restrictions/Additional Instructions: Thank you for choosing [facility] for your healthcare needs today. Please realize that you were seen in the Emergency Department and that we are providing you with an emergency medical screening exam and this may not be a complete and all inclusive of all the testing and or medical work-up that you may need to determine your ailment or severity of your illness. It is very important that you follow-up as instructed with your Primary care provider or Specialist for additional evaluation and to discuss your medical treatment plan. Coding Level of Care Code ED Chemical Processing Technician for Festus Callejas
[2023-10-17] MEDS: lidocaine 2% viscous 15 ML, aluminum-mag hydrox-simethicon 30 ML, sucralfate oral liq 1 GM PO (00:26)
[2023-10-17 00:36] LABS: Basophils # 0.1 10^3/uL (0.0-0.1); Basophils % 0.6 %; Eosinophils # 0.4 10^3/uL (0.0-0.8); Eosinophils % 3.4 %; Hematocrit 41.3 % (36-47); Lymphocytes # 4.8 10^3/uL (1.5-6.5); Lymphocytes % 45.9 %; Mean Corpuscular HGB Conc 34.1 g/dL (30-55); Mean Corpuscular Hemoglobin 31.3 pg (27-33); Mean Corpuscular Volume 91.8 fl (85-98); Monocytes # 0.8 10^3/uL (0.2-0.9); Neutrophils # 4.37 10^3/uL (1.8-8.0); Neutrophils % 41.8 %; Nucleated Red Blood Cells % 0 %; Platelet Count 315 10^3/cmm (157-399); Red Cell Distribution Width 12.6 % (12.1-15.1); White Blood Count 10.42 10^3/uL (4.5-13.0)
--- NOTE | 2023-10-17 00:45 | XRR_ITS ---
PROCEDURE INFORMATION: Exam: XR Abdomen Exam date and time: 10/17/2023 1:08 AM Age: 18 years old Clinical indication: Abdominal pain; Epigastric; Prior surgery; Surgery date: 6+ months; Surgery type: Gb; Additional info: Abd pain TECHNIQUE: Imaging protocol: Radiologic exam of the abdomen. Views: Frontal supine view of the abdomen. 1 View. COMPARISON: CR XR chest 1V portable [id number] 04/13/2023 8:19 PM FINDINGS: Gastrointestinal tract: No acute abnormality. No significant large or small bowel distention. Bones/joints: No acute osseous abnormality. XR/XR abdomen 1V* [id number] IMPRESSION: No acute abnormality demonstrated.
[2023-10-17 00:47] LABS: HCG Qualitative Urine. Negative (Negative)
[2023-10-17 00:53] LABS: Alanine Aminotransferase 13 U/L (0-33); Albumin Level 4.5 g/dL (3.5-5.2); Alkaline Phosphatase 82 U/L (35-105); Anion Gap 16.7 (5-19); Aspartate Amino Transferase 16 U/L (0-32); Blood Urea Nitrogen 7 mg/dL (6-20); Calcium 9.2 mg/dL (8.5-10.5); Carbon Dioxide 21 mmol/L (22-29); Chloride 105 mmol/L (98-107); Creatinine Clr Calc Pharmacy 236.3227; Globulin 3.4 g/dL (1.3-4.6); Glomerular Filtration Rate 157.3 mL/min (90-130); Glucose 92 mg/dL (65-115); Lipase 23 U/L (13-60); Osmolality Calculated 286 mOsm/kg (285-295); Potassium 3.7 mmol/L (3.5-5.1); Sodium 139 mmol/L (136-145); Total Bilirubin 0.4 mg/dL (0.15-1.2); Total Protein 7.9 g/dL (6.6-8.7)
[2023-10-17 00:54] LABS: Add Urine Microscopic? YES; Bilirubin Urine Neg (Negative); Blood Urine Neg (Negative); Glucose Urine UA Norm (Normal); Ketones Urine 1+ (Negative); Leukocyte Esterase Urine Negative (Negative); Nitrate Urine Negative (Negative); Protein Urine Trace (Negative); Specific Gravity, Urine 1.025 (1.005-1.030); Urine Appearance Hazy (CLEAR); Urine Color Yellow (Yellow); Urobilinogen Urine Neg (Negative); pH Urine 5 (5-7)
[2023-10-17 00:55] VITALS: BP 152/109; PULSE 79; O2SAT 98
[2023-10-17 00:55] LABS: Add Urine Culture? No; Bacteria Urine 3+ /hpf; Mucus Urine 3+ /hpf; RBC Urine 0-4 /hpf (0-2); WBC Urine 0-4 /hpf (0-5)
[2023-10-17 00:59] LABS: Amphetamines Screen Urine Negative (Negative); Barbiturates Screen Urine Negative (Negative); Benzodiazepines Screen Urine Positive (Negative); Cocaine Screen Urine Negative (Negative); Opiate Screen Urine Negative (Negative); PCP Screen Urine Negative (Negative); THC Screen Urine Positive (Negative)
[2023-10-17] MEDS: ondansetron 2 mg/ML SDV 2 mL 4 MG IVP (01:14)
[2023-10-17 02:13] VITALS: BP 147/99; PULSE 79; O2SAT 98
[2023-10-17 03:04] VITALS: BP 167/107; PULSE 100; O2SAT 99
[2023-10-17 03:13] VITALS: BP 167/107; PULSE 100; O2SAT 99
== END 2023-10-17 03:13 | disposition home or self-care (01) ==
PROVIDERS: Emergency Provider Internal Medicine; PCP Family Medicine
DX: R10.84 Generalized abdominal pain (principal); R11.2 Nausea with vomiting, unspecified; F12.90 Cannabis use, unspecified, uncomplicated; I10 Essential (primary) hypertension
CPT/HCPCS: 74018; 80053; 80306; 81001; 81025; 83690; 85025; 96374; 99284; J2405

== ENCOUNTER 2024-02-27 13:02 | Emergency (ER) | payer BC, MEDICAID, SELFPAY ==
[2024-02-27 13:10] VITALS: BP 186/90; PULSE 86; RESP 18; TEMP 36.9; O2SAT 100; BMI 41.0
--- NOTE | 2024-02-27 13:20 | ED_ITS ---
HPI - URI/Sore Throat 2 General: Chief Complaint: Upper Respiratory Infection Stated Complaint: sent over with possible absess and swollen throat Time Seen by Provider: 02/27/24 13:19 History of Present Illness: 18-year-old female was seen on Sunday an d started on amoxicillin for a tonsillitis. Patient continued to have increased sore throat and discomfort and was referred to the ER for concerns of possible abscess of the pharynx. Patient appears nontoxic. Patient is managing secretions well. Airway is intact. Related Data Home Medications Medication Instructions Recorded Confirmed fluoxetine 20 mg capsule (Prozac) 20 mg PO DAILY 03/10/23 04/14/23 lisinopril 5 mg tablet 5 mg PO DAILY 03/10/23 04/14/23 quetiapine 50 mg tablet (Seroquel) 50 mg PO BID 03/10/23 04/14/23 Previous Rx's Medication Instructions Recorded omeprazole 20 mg capsule,delayed 20 mg PO DAILY 2 weeks #14 caps 03/10/23 release albuterol sulfate 90 mcg/actuation 2 inh inhalation Q8H PRN shortness 04/16/23 aerosol inhaler of breath or wheezing #6.7 grams budesonide 90 mcg/actuation breath 1 inh inhalation BID #1 ea 04/16/23 activated powder inhaler methylprednisolone 4 mg tablets in See Rx Instructions PO .COMPLEX 04/16/23 a dose pack (Medrol (Jhonny)) #21 ea ondansetron HCl 4 mg tablet 4 mg PO Q6H PRN nausea and 10/17/23 vomiting #14 tabs clindamycin HCl 300 mg capsule 300 mg PO QID 7 days #28 caps 02/27/24 ketorolac 10 mg tablet 10 mg PO Q6H PRN pain #10 tabs 02/27/24 prednisone 20 mg tablet 20 mg PO DAILY 7 days #7 tabs 02/27/24 Allergies Allergy/AdvReac Type Severity Reaction Status Date / Time hydroxyzine Allergy ADR-Halluci Verified 02/27/24 13:10 nating Review of Systems 2 General: Reports: 10 or more systems reviewed and unremarkable except in HPI and below PFSH ED 2 PFSH: Medical History Acute hypoxic respiratory failure Anxiety Asthma with exacerbation Depression Hypertension Surgical History History of cholecystectomy Family History Other No pertinent family history Social History Smoking and tobacco/nicotine status: never used tobacco/nicotine Alcohol intake: never Substance/Drug Use: never Female Reproductive History: Date of last menstrual period: 01/14/24 Physical Exam 2 Const: COMMON NORMALS: alert HENMT: COMMON NORMALS: normocephalic HEAD & SCALP: normocephalic THROAT: abnormal tonsil (Right tonsil is hypertrophied when compared to the left.) Neck/C-Spine: COMMON NORMALS: full ROM Resp: COMMON NORMALS: normal respiratory effort Cardio: COMMON NORMALS: regular rate RATE: regular rate GI: COMMON NORMALS: Soft to palpation PALPATION: Yes Soft to palpation Back/Pelvis: COMMON NORMALS: thoracic and lumbar spine normal to inspection Extremity: COMMON NORMALS: full ROM Neuro: SENSORIUM/ORIENTATION: Yes alert Skin: COMMON NORMALS: turgor normal GENERAL SKIN EXAM: turgor normal Course 2 Vital Signs: Vital signs: Vital Signs Temperature 98.5 F 02/27/24 13:10 Pulse Rate 86 02/27/24 13:10 Respiratory Rate 20 H 02/27/24 13:43 Blood Pressure 186/90 02/27/24 13:10 Pulse Oximetry 98 02/27/24 13:43 MDM - URI/Sore Throat Medical Decision Making Patient comes in today for concerns of pharyngeal abscess. Patient was started on antibiotics on Sunday for concerns of tonsillitis. Patient continued to have swelling of the tonsil today and was referred to the ER by primary care. Posterior pharynx shows some tonsillar enlargement of the right tonsil when compared to the left. Airway is intact. Patient is managing secretions well. Vital signs are normal except for elevated blood pressure. Differential diagnosis includes tonsillar abscess, retropharyngeal abscess, viral syndrome, tonsillitis. CT of the neck noted no obvious abscess although in the right palatine tonsil there may be a developing abscess. Patient was given clindamycin and steroid to help with the swelling. Patient is managing secretions well. Recommended follow-up with ENT, case management requested to help with appointment. Lab Data 02/27/24 13:30 02/27/24 13:[address] 02/27/24 13:25 IMPRESSION: 1. Enlarged bilateral tonsils with typical striated appearance consistent with nonsuppurative tonsillitis. 2. There is a focal 6 mm slightly low-attenuation region in the RIGHT [place] tonsil which could represent a small phlegmon or developing abscess. This is very small. 3. Bilateral reactive cervical chain lymphadenopathy. The largest lymph node on the RIGHT at level 2A measures 1.8 cm. 4. Mild narrowing of the airway at the level of the enlarged tonsils. Laboratory Results Sodium 139 mmol/L (136-145) 02/27/24 13:30 Potassium 3.9 mmol/L (3.5-5.1) 02/27/24 13:30 Chloride 106 mmol/L (98-107) 02/27/24 13:30 Carbon Dioxide 21 mmol/L (22-29) L 02/27/24 13:30 Anion Gap 15.9 (5-19) 02/27/24 13:30 BUN 5 mg/dL (6-20) L 02/27/24 13:30 Creatinine 0.5 mg/dL (0.5-0.9) 02/27/24 13:30 GFR Calculation 157.3 mL/min (90-130) H 02/27/24 13:30 Glucose 88 mg/dL (65-115) 02/27/24 13:30 Calculated Osmolality 285 mOsm/kg (285-295) 02/27/24 13:30 Calcium 8.5 mg/dL (8.5-10.5) 02/27/24 13:30 Total Bilirubin 0.6 mg/dL (0.15-1.2) 02/27/24 13:30 AST 39 U/L (0-32) H 02/27/24 13:30 ALT 82 U/L (0-33) H 02/27/24 13:30 Alkaline Phosphatase 112 U/L (35-105) H 02/27/24 13:30 Total Protein 7.7 g/dL (6.6-8.7) 02/27/24 13:30 Albumin 4.1 g/dL (3.5-5.2) 02/27/24 13:30 Globulin 3.6 g/dL (1.3-4.6) 02/27/24 13:30 HCG, Qual Negative (Negative) 02/27/24 13:30 All radiology interpretation(s) finalized by discharge Discharge Plan Discharge Patient Disposition: Home Clinical Impression: Acute erythematous tonsillitis Condition: Stable Prescriptions: New clindamycin HCl 300 mg capsule 300 mg PO QID 7 Days Qty: 28 0RF prednisone 20 mg tablet 20 mg PO DAILY 7 Days Qty: 7 0RF ketorolac 10 mg tablet 10 mg PO Q6H PRN (Reason: pain) Qty: 10 0RF Rx Instructions: maximum total duration of 5 days from all oral, intranasal, or parenteral formulations No Action quetiapine [Seroquel] 50 mg tablet 50 mg PO BID fluoxetine [Prozac] 20 mg capsule 20 mg PO DAILY lisinopril 5 mg tablet 5 mg PO DAILY omeprazole 20 mg capsule,delayed release(DR/EC) 20 mg PO DAILY 14 Days Qty: 14 0RF Medrol (Jhonny) 4 mg tablets,dose pack See Rx Instructions .ROUTE .COMPLEX Qty: 21 0RF Rx Instructions: orally per package directions albuterol sulfate 90 mcg/actuation HFA aerosol inhaler 2 inh inhalation Q8H PRN (Reason: shortness of breath or wheezing) Qty: 6.7 4RF budesonide 90 mcg/actuation aerosol powdr breath activated 1 inh inhalation BID Qty: 1 4RF ondansetron HCl 4 mg tablet 4 mg PO Q6H PRN (Reason: nausea and vomiting) Qty: 14 0RF Discharge Orders: Discharge ED (Routine); Ordered 02/27/24 Ordered By: Mega Potter Referrals: Ivana Parra DO [Primary Care Provider] - Discharge Diet: Usual diet Discharge Activity: Increase activity as tolerated Patient Instructions: Tonsillitis (ED) Activity Restrictions/Additional Instructions: Home and rest. Stop amoxicillin and take clindamycin 300 mg 4 times a day for the next 7 days. Take steroid prednisone 20 mg daily for the next 7 days for inflammation and swelling. Use acetaminophen along with ketorolac for further pain relief. Drink plenty of water and fluids with medication. Follow-up with primary care as needed. Return to ER for new concerns. Case management will contact you regarding follow-up with nuclear medicine technologist for further evaluation and treatment. Coding Level of Care Code ED Filament Shaper for Festus Callejas
--- NOTE | 2024-02-27 13:25 | CT_ITS ---
WS: [id number] CT NECK WITH CONTRAST HISTORY: tonsilar abscess, r/o retropharyngeal abscess TECHNIQUE: Contiguous 2 mm axial images are performed through the neck with intravenous contrast. Sag ittal and coronal reformats are also submitted. All CT scans at [facility] use at least one o f these dose optimization techniques: automated exposure control; mA and/or kV adjustment per patient size (includes targeted exams where dose is matched to clinical indication); or iterative reconstruc tion. CONTRAST: CONTRAST: Omnipaque 350; 100 mL IV. DLP: 396.61 mGy.cm COMPARISON: None available. Bilaterally significantly enlarged tonsils with a striated enhancement pattern. This is consistent wi th nonsuppurative tonsillitis. There is no definite abscess at this time. Possible early developing a bscess versus phlegmon measuring 6 mm in the RIGHT [place] tonsil. Tonsils are encroaching upon the airway. Cervical chain lymphadenopathy is identified. The largest lymph node is at level 2 demonstrating enha ncement with loss of the normal fatty hilum. The largest RIGHT level 2 lymph node measures 1.8 cm in diameter. There are additional smaller bilateral reactive lymph nodes at multiple group locations. Epiglottis is normal. No retropharyngeal abscess is identified. Submandibular and parotid glands are negative. No osseous abnormalities. Visualized portions of the skull base demonstrate no abnormalities. Orbits and globes are within norm al limits. No soft tissue masses. Visualized paranasal sinuses and mastoid air cells are normal. Lung apices are clear. CT/CT neck w con* [id number] IMPRESSION: 1. Enlarged bilateral tonsils with typical striated appearance consistent with nonsuppurative tonsillitis. 2. There is a focal 6 mm slightly low-attenuation region in the RIGHT [place] tonsil which could represent a small phlegmon or developing abscess. This is v luh small. 3. Bilateral reactive cervical chain lymphadenopathy. The largest lymph node o n the RIGHT at level 2A measures 1.8 cm. 4. Mild narrowing of the airway at the level of the enlarged tonsils.
[2024-02-27 13:35] LABS: Basophils # 0.1 10^3/uL (0.0-0.1); Basophils % 0.8 %; Eosinophils # 0.2 10^3/uL (0.0-0.8); Eosinophils % 1.5 %; Hematocrit 38.3 % (36-47); Lymphocytes # 8.1 10^3/uL (1.5-6.5); Lymphocytes % 61.2 %; Mean Corpuscular HGB Conc 33.4 g/dL (30-55); Mean Corpuscular Hemoglobin 31.1 pg (27-33); Mean Corpuscular Volume 93.2 fl (85-98); Mean Platelet Volume 9.9 fL (7.4-10.4); Monocytes # 0.8 10^3/uL (0.2-0.9); Monocytes % 6.1 %; Neutrophils # 3.94 10^3/uL (1.8-8.0); Neutrophils % 29.9 %; Nucleated Red Blood Cells % 0 %; Platelet Count 242 10^3/cmm (157-399); Red Blood Count 4.11 10^6/uL (3.85-5.65); Red Cell Distribution Width 13.1 % (12.1-15.1); White Blood Count 13.18 10^3/uL (4.5-13.0)
[2024-02-27] MEDS: dexamethasone 10 mg/mL INJ IVP (13:36)
[2024-02-27] MEDS: ketorolac 30 mg/mL INJ 15 MG IVP (13:41)
[2024-02-27 13:43] VITALS: RESP 20; O2SAT 98
[2024-02-27] MEDS: morphine 4 mg/mL SDV 1 mL 2 MG IVP (13:43)
[2024-02-27] MEDS: iohexol 350 mg/mL 500 mL Btl (per mL) IV (13:50)
[2024-02-27 13:54] LABS: HCG, Serum Qual Negative (Negative)
[2024-02-27 13:55] LABS: Alanine Aminotransferase 82 U/L (0-33); Albumin Level 4.1 g/dL (3.5-5.2); Alkaline Phosphatase 112 U/L (35-105); Anion Gap 15.9 (5-19); Aspartate Amino Transferase 39 U/L (0-32); Blood Urea Nitrogen 5 mg/dL (6-20); Calcium 8.5 mg/dL (8.5-10.5); Carbon Dioxide 21 mmol/L (22-29); Chloride 106 mmol/L (98-107); Creatinine Clr Calc Pharmacy 239.4065; Globulin 3.6 g/dL (1.3-4.6); Glomerular Filtration Rate 157.3 mL/min (90-130); Glucose 88 mg/dL (65-115); Osmolality Calculated 285 mOsm/kg (285-295); Potassium 3.9 mmol/L (3.5-5.1); Sodium 139 mmol/L (136-145); Total Bilirubin 0.6 mg/dL (0.15-1.2); Total Protein 7.7 g/dL (6.6-8.7)
[2024-02-27] MEDS: clindamycin 900 MG/50 ML PREMIX 100 MG IV (13:55)
[2024-02-27 14:41] VITALS: BP 142/98; PULSE 93; O2SAT 98
[2024-02-27 14:44] LABS: Slide Review Slide Review Perform
--- NOTE | 2024-02-28 07:51 | DCPLANNER ---
faxed referral to rafia (ent)
== END 2024-02-27 14:42 | disposition home or self-care (01) ==
PROVIDERS: Emergency Provider Nurse Practitioner Family; PCP Family Medicine
DX: J03.90 Acute tonsillitis, unspecified (principal); I10 Essential (primary) hypertension
CPT/HCPCS: 70491; 80053; 84703; 85025; 96365; 96375; 99285; J1100; J1885; J2270; J3490; Q9967

== ENCOUNTER → 2025-02-12 13:41 | Outpatient (BNVA) | payer BC, MEDICAID, SELFPAY | PROVIDERS: PCP Family Medicine; Visit Provider Nurse Practitioner | DX: R30.9 Painful micturition, unspecified (principal) | CPT/HCPCS: 81000 ==